=== PATIENT | male | born 1975 | race Caucasian/White ===

== ENCOUNTER 2025-06-05 06:00 | Day surgery (SDC) | payer OTHER ==
[~2025-06-05 06:00] MED LIST: LEVOTHYROXINE25 MCG PO; TAMS0.4C PO; VYVANSE20 MG PO
[2025-06-05] MEDS ORDERED: BUPIVACAINE HCL/MPF 0.5% 30ML VIAL ONE (07:00)
[2025-06-05] MEDS ORDERED: LIDOCAINE HCL 1%/EPINEPHRINE 20ML VIAL IJ ONE (07:01)
[2025-06-05] MEDS ORDERED: CEFAZOLIN SODIUM 1,000 MG VIAL ONE (07:01)
[2025-06-05] MEDS ORDERED: TRAMADOL HCL50 MG PO (07:44)
[2025-06-05] MEDS ORDERED: KETO10TA2 PO (07:44)
[2025-06-05] MEDS ORDERED: TYLENOL ARTHRI650 MG PO (07:44)
[2025-06-05] MEDS ORDERED: MIRALAX17 GM PO (07:44)
[2025-06-05] MEDS ORDERED: KETOROLAC TROMETHAMINE 30 MG VIAL ONE (08:42)
== END 2025-06-05 13:05 | disposition home or self-care (01) ==
LOC: CIR.AMB 06:00
PROVIDERS: ATTEND Surgery
DX: K40.90 Unilateral inguinal hernia, without obstruction or gangrene, not specified as recurrent (principal)
CPT/HCPCS: 49650; C1781